=== PATIENT | female | born 1950 ===

== ENCOUNTER 2019-07-31 03:38 | Inpatient (IN) ==
[2019-07-31] MEDS ORDERED: NICOTINE 21 MG/24 HR PATCH TRANSDERM PRN (05:47)
[2019-07-31] MEDS ORDERED: MORPHINE 4 MG/1 ML VIAL IV PRN (05:47)
[2019-07-31] MEDS ORDERED: GLUCAGON 1 MG VIAL IM PRN (05:47)
[2019-07-31] MEDS ORDERED: diphenhydrAMINE CAP 25 MG CAPSULE PO PRN (05:47)
[2019-07-31] MEDS ORDERED: hydrALAZINE 20 MG/1 ML VIAL IV PRN (05:47)
[2019-07-31] MEDS ORDERED: guaiFENesin/DM ER 600-30 MG TABLET PO PRN (05:47)
[2019-07-31] MEDS ORDERED: DEXTROSE 50% 25 GM/50 ML VIAL IV PRN ×2 (05:47→06:17)
[2019-07-31] MEDS ORDERED: ONDANSETRON 4 MG/2 ML VIAL IV PRN (05:47)
[2019-07-31] MEDS ORDERED: SODIUM CHLORIDE 0.9% 1,000 ML IV SCH (06:00)
[2019-07-31 07:18] LABS: Basophils % 0.2 % (0.0-0.8); Eosinophils % 0.7 % (0.00-10.9); Hematocrit 33.1 VOL% (35.7-47.0); Hemoglobin 10.7 GM/DL (12.0-16.0); Immature Granulocytes % 0.5 %; Immature Granulocytes Absolute 0.03 #; Lymphocytes # 1.2 10*3/uL (1.4-4.0); Lymphocytes % 20.3 % (21.3-54.2); Mean Corpuscular HGB Conc 32.3 GM/DL (32-36); Mean Platelet Volume 9.9 FL (9.6-12.0); Monocytes % 6.7 % (1.7-12.7); Neutrophils % 71.6 % (38.7-73.9); Platelet Count 147 T/CUMM (130-400); Red Blood Count 3.31 MC/CUMM (3.8-5.5); Red Cell Distribution Width 13.6 % (9.3-17.3); White Blood Count 5.9 T/CUMM (4-12)
[2019-07-31 07:46] LABS: INR 1.1; PT Patient Result 11.7 SECS (9.8-11.9); Partial Thromboplastin Time 39.1 SECS (23.9-33.8)
[2019-07-31 07:51] LABS: Ferritin 3754.4 ng/ml (8-252)
[2019-07-31 07:56] LABS: Albumin 2.5 G/DL (3.4-5.0); Bilirubin,Total 0.4 MG/DL (0.2-1.0); Calcium 8.6 MG/DL (8.5-10.1); Osmolality,Calculated 274.4 MOS/KG (273-304); Total Protein 7.5 G/DL (6.4-8.3)
[2019-07-31] MEDS ORDERED: ENOXAPARIN 40 MG/0.4 ML SYRINGE SUBCUT SCH (09:00)
[2019-07-31] MEDS: cefTRIAXone 1,000 MG in SYRINGE 1 EACH IV SCH (09:23)
[2019-07-31] MEDS: AZITHROMYCIN 250 MG TABLET PO SCH (09:24)
[2019-07-31] MEDS: NYSTATIN CREAM 15 GM TUBE TOP SCH ×2 (09:24→21:38)
[2019-07-31] MEDS: INSULIN REGULAR 100 UNIT/ML SUBCUT SCH ×2 (12:54→18:41)
[2019-07-31] MEDS: ACETAMINOPHEN 325 MG TABLET PO PRN (12:54)
[2019-08-01] MEDS: ACETAMINOPHEN 325 MG TABLET PO PRN (00:50)
[2019-08-01] MEDS: INSULIN REGULAR 100 UNIT/ML SUBCUT SCH ×4 (01:57→18:17)
[2019-08-01 05:31] LABS: Basophils % 0.3 % (0.0-0.8); Eosinophils % 0.3 % (0.00-10.9); Hematocrit 30.2 VOL% (35.7-47.0); Hemoglobin 9.7 GM/DL (12.0-16.0); Immature Granulocytes % 0.7 %; Immature Granulocytes Absolute 0.05 #; Lymphocytes # 1.2 10*3/uL (1.4-4.0); Lymphocytes % 18.2 % (21.3-54.2); Mean Corpuscular HGB Conc 32.1 GM/DL (32-36); Mean Platelet Volume 10.5 FL (9.6-12.0); Monocytes % 4.8 % (1.7-12.7); Neutrophils % 75.7 % (38.7-73.9); Platelet Count 153 T/CUMM (130-400); Red Blood Count 3.05 MC/CUMM (3.8-5.5); Red Cell Distribution Width 13.6 % (9.3-17.3); White Blood Count 6.8 T/CUMM (4-12)
[2019-08-01 06:03] LABS: Calcium 8.1 MG/DL (8.5-10.1); Ferritin 3428.3 ng/ml (8-252); Osmolality,Calculated 275.7 MOS/KG (273-304)
[2019-08-01] MEDS ORDERED: DEXTROSE 10% 250 ML BAG IV PRN (08:00)
[2019-08-01] MEDS: NYSTATIN CREAM 15 GM TUBE TOP SCH ×2 (10:45→21:48)
[2019-08-01] MEDS: AZITHROMYCIN 250 MG TABLET PO SCH (10:45)
[2019-08-01] MEDS: DESITIN 4OZ/NYSTATIN 15 GRAM MIXTURE PASTE TOP SCH ×2 (10:45→21:48)
[2019-08-01] MEDS: HEPARIN 5,000 UNIT/1 ML VIAL SUBCUT SCH ×3 (10:46→21:47)
[2019-08-01] MEDS: cefTRIAXone 1,000 MG in SYRINGE 1 EACH IV SCH (10:47)
[2019-08-02] MEDS: INSULIN REGULAR 100 UNIT/ML SUBCUT SCH ×3 (00:30→12:02)
[2019-08-02] MEDS: HEPARIN 5,000 UNIT/1 ML VIAL SUBCUT SCH ×2 (05:35→13:02)
[2019-08-02 05:38] LABS: Basophils % 0.2 % (0.0-0.8); Eosinophils % 0.2 % (0.00-10.9); Hemoglobin 10.6 GM/DL (12.0-16.0); Immature Granulocytes % 0.7 %; Immature Granulocytes Absolute 0.07 #; Lymphocytes # 1.4 10*3/uL (1.4-4.0); Lymphocytes % 14.5 % (21.3-54.2); Mean Corpuscular HGB Conc 32.1 GM/DL (32-36); Mean Corpuscular Volume 100.9 FL (87-102); Mean Platelet Volume 10.5 FL (9.6-12.0); Monocytes % 3.5 % (1.7-12.7); Neutrophils % 80.9 % (38.7-73.9); Platelet Count 172 T/CUMM (130-400); Red Blood Count 3.27 MC/CUMM (3.8-5.5); Red Cell Distribution Width 13.9 % (9.3-17.3); White Blood Count 9.8 T/CUMM (4-12)
[2019-08-02] MEDS: NYSTATIN CREAM 15 GM TUBE TOP SCH (08:46)
[2019-08-02] MEDS: cefTRIAXone 1,000 MG in SYRINGE 1 EACH IV SCH (08:46)
[2019-08-02] MEDS: AZITHROMYCIN 250 MG TABLET PO SCH (08:47)
[2019-08-02] MEDS: DESITIN 4OZ/NYSTATIN 15 GRAM MIXTURE PASTE TOP SCH (08:47)
[2019-08-02 10:37] LABS: Osmolality,Calculated 275.5 MOS/KG (273-304)
[2019-08-02 16:25] VITALS: BP 126/83
== END 2019-08-02 17:39 | disposition home health service (06) | DRG 177 ==
LOC: N.2W 05:34 → SUATTDRO 05:34
PROVIDERS: ADMIT Internal Medicine Critical Care Medicine; ATTEND Internal Medicine